=== PATIENT | female | born 1985 | race Caucasian/White ===

== ENCOUNTER 2017-09-29 12:46 | Outpatient (CLI) | payer BC ==
[2017-09-29 17:41] LABS: BASOPHILS % (AUTO) 0.5 %; EOSINOPHILS # (AUTO) 0.1 10^3/uL (0.0-0.7); EOSINOPHILS % (AUTO) 2.6 %; HCT - HEMATOCRIT 41.7 % (37.0-47.0); HGB - HEMOGLOBIN 13.8 g/dL (12.0-16.0); LYMPHOCYTES # (AUTO) 1.6 10^3/uL (1.5-3.5); MEAN CORPUSCULAR HEMOGLOBIN 29.2 pg (27.0-31.0); MEAN CORPUSCULAR HGB CONC 33.1 g/dL (32.0-36.0); MEAN PLATELET VOLUME 8.9 fL (7.9-10.8); MONOCYTES # (AUTO) 0.4 10^3/uL (0.0-1.0); MONOCYTES % (AUTO) 9.6 %; NEUTROPHILS # (AUTO) 2.4 10^3/uL (1.5-6.6); NEUTROPHILS % (AUTO) 52.3 %; RED BLOOD COUNT 4.74 10^6/uL (4.20-5.40); RED CELL DISTRIBUTION WIDTH 13.6 % (12.0-15.0); UNCORRECTED WHITE BLOOD COUNT 4.6 x10^3/uL; WHITE BLOOD COUNT 4.6 x10^3/uL (4.8-10.8)
[2017-09-29 18:00] LABS: THYROID STIMULATING HORMONE 2.16 uIU/mL (0.34-5.60)
[2017-09-29 18:02] LABS: ALBUMIN/GLOBULIN RATIO 1.8 (1.0-2.2); BILIRUBIN,TOTAL 0.7 mg/dL (0.2-1.0); BUN - BLOOD UREA NITROGEN 10 mg/dL (6-20); CARBON DIOXIDE - CO2 28 mmol/L (21-32); CHLORIDE 104 mmol/L (101-111); CREATININE 0.7 mg/dL (0.4-1.0); GFR - MDRD 96 (>89); GLUCOSE 88 mg/dL (70-100); IRON 110 ug/dL (28-170); POTASSIUM 4.1 mmol/L (3.5-5.0); SODIUM 137 mmol/L (135-145); TOTAL IRON BINDING CAPACITY 431 ug/dL (250-450); TOTAL PROTEIN 7.2 g/dL (6.7-8.2); TRANSFERRIN 308 mg/dL (192-382)
== END 2017-09-29 12:47 | disposition home or self-care (01) ==
LOC: LAB.F 12:46
PROVIDERS: ATTEND Nurse Practitioner Family
DX: R53.83 Other fatigue (principal)
CPT/HCPCS: 36415; 80053; 82607; 83540; 84443; 84466; 85025

== ENCOUNTER 2018-11-02 11:28 | Outpatient (CLI) | payer BC ==
[2018-11-02 19:14] LABS: BILIRUBIN,URINE NEGATIVE (NEGATIVE); GLUCOSE, URINE (UA) NEGATIVE (NEGATIVE); KETONES,URINE (UA) NEGATIVE (NEGATIVE); LEUKOCYTE ESTERASE, URINE NEGATIVE (NEGATIVE); NITRITE,URINE NEGATIVE (NEGATIVE); OCCULT BLOOD,URINE MODERATE (NEGATIVE); PROTEIN,URINE NEGATIVE (NEGATIVE); UROBILINOGEN,URINE 0.2 (NORMAL) E.U./dL (NORMAL)
[2018-11-02 19:24] LABS: CLARITY,URINE CLEAR (CLEAR)
[2018-11-02 19:45] LABS: BACTERIA,URINE None Seen /HPF (None Seen); RBC,URINE 0-5 /HPF (0-5); SQUAMOUS EPITHELIAL CELL,UR FEW Squamous (<= Few)
== END 2018-11-02 23:59 | disposition home or self-care (01) ==
LOC: LAB.R 11:28
PROVIDERS: ATTEND Nurse Practitioner Obstetrics & Gynecology
DX: N76.0 Acute vaginitis (principal); R30.0 Dysuria
CPT/HCPCS: 81001; 87086; 87480; 87510; 87660

== ENCOUNTER 2020-09-26 08:00 | Outpatient (CLI) | payer BC | END 2020-09-26 23:59 | disposition home or self-care (01) | LOC: LAB.R 08:00 | PROVIDERS: ATTEND Physician Assistant | DX: J01.00 Acute maxillary sinusitis, unspecified (principal) | CPT/HCPCS: 87640 ==

== ENCOUNTER 2021-03-05 11:21 | Outpatient (CLI) | payer BC ==
[2021-03-05 11:52] LABS: BASOPHILS % (AUTO) 0.7 %; EOSINOPHILS # (AUTO) 0.2 10^3/uL (0.0-0.7); EOSINOPHILS % (AUTO) 2.9 %; HCT - HEMATOCRIT 40.1 % (37.0-47.0); HGB - HEMOGLOBIN 13.1 g/dL (12.0-16.0); LYMPHOCYTES # (AUTO) 2.1 10^3/uL (1.5-3.5); LYMPHOCYTES % (AUTO) 34.8 %; MEAN CORPUSCULAR HEMOGLOBIN 29.8 pg (27.0-31.0); MEAN CORPUSCULAR HGB CONC 32.7 g/dL (32.0-36.0); MEAN CORPUSCULAR VOLUME 91.3 fL (81.0-99.0); MEAN PLATELET VOLUME 10.4 fL (7.9-10.8); MONOCYTES # (AUTO) 0.5 10^3/uL (0.0-1.0); MONOCYTES % (AUTO) 8.1 %; NEUTROPHILS # (AUTO) 3.2 10^3/uL (1.5-6.6); NEUTROPHILS % (AUTO) 53.2 %; PLT - PLATELET COUNT 238 10^3/uL (130-450); RED BLOOD COUNT 4.39 10^6/uL (4.20-5.40); RED CELL DISTRIBUTION WIDTH 12.8 % (12.0-15.0); WHITE BLOOD COUNT 5.9 x10^3/uL (4.8-10.8)
[2021-03-05 12:13] LABS: ALBUMIN 4.2 g/dL (3.2-5.5); ALBUMIN/GLOBULIN RATIO 1.5 (1.0-2.2); ALKALINE PHOSPHATASE 59 IU/L (42-121); ALT ALANINE AMINOTRANSFERASE 20 IU/L (10-60); AST ASPARTATE AMINOTRANSFERASE 22 IU/L (10-42); BILIRUBIN,TOTAL 0.6 mg/dL (0.2-1.0); BUN - BLOOD UREA NITROGEN 13 mg/dL (6-20); CALCIUM 9.1 mg/dL (8.5-10.3); CARBON DIOXIDE - CO2 26 mmol/L (21-32); CHLORIDE 103 mmol/L (101-111); CHOL/HDL RATIO 2.3 (<4.4); CHOLESTEROL 185 mg/dL; CREATININE 0.7 mg/dL (0.4-1.0); GFR - MDRD 95 (>89); GLUCOSE 97 mg/dL (70-100); HDL CHOLESTEROL 79 mg/dL; LDL CHOLESTEROL,CALCULATED 91 mg/dL; LDL/HDL RATIO 1.2 (<4.4); POTASSIUM 4.2 mmol/L (3.5-5.0); SODIUM 137 mmol/L (135-145); TRIGLYCERIDES 77 mg/dL; VLDL CHOLESTEROL 15 mg/dL
[2021-03-05 12:23] LABS: THYROID STIMULATING HORMONE 3.08 uIU/mL (0.34-5.60)
== END 2021-03-05 11:22 | disposition home or self-care (01) ==
LOC: LAB 11:21
PROVIDERS: ATTEND Physician Assistant
DX: F41.9 Anxiety disorder, unspecified (principal); F32.9 Major depressive disorder, single episode, unspecified; Z83.438 Family history of other disorder of lipoprotein metabolism and other lipidemia; R53.1 Weakness; R53.83 Other fatigue; F32.81 Premenstrual dysphoric disorder; G43.909 Migraine, unspecified, not intractable, without status migrainosus
CPT/HCPCS: 36415; 80053; 80061; 82306; 83721; 84443; 85025; 85651

== ENCOUNTER 2021-07-25 08:00 | Outpatient (CLI) | payer BC | END 2021-07-25 23:59 | disposition home or self-care (01) | LOC: LAB.S 08:00 | PROVIDERS: ATTEND Physician Assistant Medical | DX: R07.0 Pain in throat (principal); Z20.822 Contact with and (suspected) exposure to COVID-19 ==

== ENCOUNTER 2021-08-27 18:50 | Outpatient (CLI) | payer BC ==
--- NOTE | 2021-08-28 09:03 | Ultrasound Report ---
PROCEDURE: Pelvic w/Transvaginal INDICATIONS: PELVIC PAIN TECHNIQUE: Real-time scanning was performed of the pelvic organs, with image documentation. Additional endovagi nal scanning was necessary due to incomplete visualization of the adnexal and endometrial structures by transabdominal scanning. COMPARISON: April 13, 2013. FINDINGS: UTERUS: Anteverted, heterogeneous echotexture, and measures 8.9 x 4.1 x 4.4 cm. An ovoid, slightly hy poechoic lesion is seen in the left lateral uterus, measuring 1.6 x 1.7 x 1.4 cm, compatible with a i ntramural fibroid. The endometrial thickness measures 5.3 mm. RIGHT OVARY: 2.9 x 1.9 x 2.5 cm. Color-flow projects over the ovarian tissue. Redemonstrated hypoecho ic lesion in the right adnexa, measuring 3.4 x 3.2 x 3.8 cm (previously measuring 4.2 x 2.4 x 2.8 cm) , which may contain a solid component but does not demonstrate vascularity. LEFT OVARY: 1.6 x 2.6 x 2.9 cm. Color-flow projects over the ovarian tissue. OTHER: None. IMPRESSION: 1.Slightly decreased size of the previously demonstrated right adnexal cyst, which may contain a mura l nodule. Consider magnetic resonance imaging and gynecological consultation. Reviewed by: Conrad Echols MD on 08/28/2021 9:01 AM PDT Approved by: Conrad Echols MD on 08/28/2021 9:01 AM PDT Station ID: [id number]
== END 2021-08-27 18:51 | disposition home or self-care (01) ==
LOC: DI 18:50
PROVIDERS: ATTEND Obstetrics & Gynecology
DX: R10.2 Pelvic and perineal pain (principal); N83.201 Unspecified ovarian cyst, right side

== ENCOUNTER 2021-12-20 14:30 | Outpatient (CLI) | payer MEDICAID ==
[2021-12-20 15:14] LABS: BASOPHILS % (AUTO) 0.6 %; EOSINOPHILS # (AUTO) 0.1 10^3/uL (0.0-0.7); EOSINOPHILS % (AUTO) 2.2 %; HCT - HEMATOCRIT 40.2 % (37.0-47.0); HGB - HEMOGLOBIN 12.8 g/dL (12.0-16.0); LYMPHOCYTES # (AUTO) 1.7 10^3/uL (1.5-3.5); LYMPHOCYTES % (AUTO) 34.1 %; MEAN CORPUSCULAR HEMOGLOBIN 28.9 pg (27.0-31.0); MEAN CORPUSCULAR HGB CONC 31.8 g/dL (32.0-36.0); MEAN CORPUSCULAR VOLUME 90.7 fL (81.0-99.0); MEAN PLATELET VOLUME 10.8 fL (7.9-10.8); MONOCYTES # (AUTO) 0.4 10^3/uL (0.0-1.0); MONOCYTES % (AUTO) 8.9 %; NEUTROPHILS # (AUTO) 2.7 10^3/uL (1.5-6.6); PLT - PLATELET COUNT 261 10^3/uL (130-450); RED BLOOD COUNT 4.43 10^6/uL (4.20-5.40); RED CELL DISTRIBUTION WIDTH 13.1 % (12.0-15.0); WHITE BLOOD COUNT 4.9 x10^3/uL (4.8-10.8)
[2021-12-20 15:27] LABS: % IRON SATURATION 14 % (20-50); IRON 60 ug/dL (28-170); TOTAL IRON BINDING CAPACITY 421 ug/dL (250-450); TRANSFERRIN 301 mg/dL (192-382)
[2021-12-20 15:35] LABS: THYROID STIMULATING HORMONE 2.1 uIU/mL (0.34-5.60)
[2021-12-20 15:40] LABS: FERRITIN 4.5 ng/mL (11.0-306.8)
== END 2021-12-20 14:31 | disposition home or self-care (01) ==
LOC: LAB 14:30
PROVIDERS: ATTEND Obstetrics & Gynecology
DX: Z01.812 Encounter for preprocedural laboratory examination (principal); N93.8 Other specified abnormal uterine and vaginal bleeding
CPT/HCPCS: 36415; 82728; 83540; 84403; 84443; 84466; 85025

== ENCOUNTER 2021-12-24 09:39 | Day surgery (SDC) | payer MEDICAID ==
[2021-12-24] MEDS ORDERED: GABAPENTIN 400 MG CAPSULE ONE (09:52)
[2021-12-24] MEDS ORDERED: ACETAMINOPHEN 500 MG TABLET PO ONE (09:53)
[2021-12-24] MEDS ORDERED: CELECOXIB 100 MG CAPSULE PO ONE (09:53)
[2021-12-24 09:58] LABS: HCG UR QUAL NEGATIVE
[2021-12-24] MEDS ORDERED: LACTATED RINGERS 1,000 ML IV ONE ×2 (10:12→14:58)
--- NOTE | 2021-12-24 10:22 | ANESTHESIA ---
Pre-Anesthesia VS, & Labs - Diagnosis DUB - Procedure diagnostic laparoscopy, hysteroscopy, IUD placement Vital Signs: Temp Pulse Resp BP Pulse Ox 36.1 C L 88 16 135/88 H 100 12/24/21 09:53 12/24/21 09:53 12/24/21 09:53 12/24/21 09:53 12/24/21 09:53 Height: 5 ft 3.5 in Weight (kg): 66.6 kg Body Mass Index: 25.6 BMI Classification: Overweight - NPO >8 hours - Is Patient ?: No Home Medications and Allergies Home Medications: Ambulatory Orders Acetaminophen [Tylenol] 650 mg PO Q6H PRN 12/16/21 Cholecalciferol [Vitamin D3] 50 mcg PO DAILY 12/16/21 Acetaminophen [Tylenol] 650 mg PO Q6H PRN 12/16/21 Cholecalciferol [Vitamin D3] 50 mcg PO DAILY 12/16/21 Allergies/Adverse Reactions: Allergies Allergy/AdvReac Type Severity Reaction Status Date / Time azithromycin [From Zithromax] Allergy Hives Verified 12/16/21 12:43 cephalexin [From Keflex] Allergy eye Verified 12/16/21 12:43 swelling Anes History & Medical History - Anesthetic History Anesthesia Complications: reports: No previous complications - Medical History Cardiovascular: reports: Hypertension Pulmonary: reports: None Gastrointestinal: reports: GERD Urinary: reports: None Musculoskeletal: reports: None Endocrine/Autoimmune: reports: None Skin: reports: Rosacea Smoking Status: Never smoker History of Cancer?: No - Surgical History Other Past Surgical History: oral surgery Exam General: Alert Dental: WNL, Other (2 missing) Mouth Opening: Greater than 4 Fingerbreadths Neck Mobility: Normal Mallampati classification: I Respiratory: Lungs clear Cardiovascular: Regular rate Plan Anesthesia Type: General Consent for Procedure(s) Verified and Reviewed: Yes Code Status: Attempt Resuscitation ASA classification: 2-Mild systemic disease Is this case an emergency?: No
[2021-12-24] MEDS ORDERED: ePHEDrine 50 MG/ML VIAL IVP PRN (10:30)
[2021-12-24] MEDS ORDERED: MORPHINE 2 MG/ML CARPUJECT IVP PRN (10:30)
[2021-12-24] MEDS ORDERED: HYDROmorphone 0.5 MG/0.5 ML SYRINGE IVP PRN (10:30)
[2021-12-24] MEDS ORDERED: ATROPINE ABBOJECT 1 MG/10 ML SYRINGE IVP PRN (10:30)
[2021-12-24] MEDS ORDERED: fentaNYL 100 MCG/2 ML VIAL IVP PRN (10:30)
[2021-12-24] MEDS ORDERED: ONDANSETRON 4 MG/2 ML VIAL IVP PRN (10:30)
[2021-12-24] MEDS ORDERED: METOCLOPRAMIDE 10 MG/2 ML VIAL IVP PRN (10:30)
[2021-12-24] MEDS ORDERED: NALOXONE 0.4 MG/ML VIAL IVP PRN (10:30)
[2021-12-24] MEDS ORDERED: LACTATED RINGERS 1,000 ML IV SCH (11:00)
[2021-12-24] MEDS ORDERED: LIDOCAINE 2%-EPI 1:100000 20 ML MDV ONE (11:16)
[2021-12-24] MEDS ORDERED: BUPIVACAINE 0.25% PF 30 ML VIAL ONE (11:16)
[2021-12-24] MEDS ORDERED: PROPOFOL 200 MG/20 ML VIAL IVP ONE (11:59)
[2021-12-24] MEDS ORDERED: LIDOCAINE-MPF 2% 5 ML VIAL ONE (11:59)
[2021-12-24] MEDS ORDERED: fentaNYL 100 MCG/2 ML VIAL ONE (12:00)
[2021-12-24] MEDS ORDERED: MIDAZOLAM 2 MG/2 ML VIAL ONE (12:00)
[2021-12-24] MEDS ORDERED: ROCURONIUM 50 MG/5 ML VIAL ONE (12:00)
[2021-12-24] MEDS ORDERED: LEVONORGESTREL 20 MCG/24H IUD IY ONE ×2 (13:00→13:40)
[2021-12-24] MEDS ORDERED: ONDANSETRON 4 MG/2 ML VIAL ONE (13:33)
[2021-12-24] MEDS ORDERED: DEXAMETHASONE 4 MG/ML VIAL ONE (13:33)
[2021-12-24] MEDS ORDERED: LIDOCAINE 2%-EPI 1:100000 20 ML MDV SUBQ ONE ×2 (13:38)
[2021-12-24] MEDS ORDERED: BUPIVACAINE 0.25% PF 30 ML VIAL SUBQ ONE ×2 (13:38)
[2021-12-24] MEDS ORDERED: GLYCOPYRROLATE 1 MG/5 ML VIAL ONE (13:43)
[2021-12-24] MEDS ORDERED: SUGAMMADEX 200 MG/2 ML VIAL IVP ONE (14:59)
[2021-12-24] MEDS ORDERED: oxyCODONE 5 MG TABLET PO PRN (15:21)
--- NOTE | 2021-12-24 15:24 | ANESTHESIA POST OP EVALUATION ---
Anesthesia Post Eval - Post Anesthesia Eval Vitals: Last Vital Signs Temp 36 C L 12/24/21 15:15 Pulse 93 12/24/21 15:15 Resp 19 12/24/21 15:15 BP 119/89 H 12/24/21 15:15 Pulse Ox 100 12/24/21 15:15 CV Function Including HR & BP: Stable Pain Control: Satisfactory Nausea & Vomiting: Negative Mental Status: Baseline Respiratory Status: Airway Patent Hydration Status: Satisfactory Anesthesia Complications: None
--- NOTE | 2021-12-24 15:28 | OPERATIVE REPORT ---
Operative Report - General Procedure Date: 12/24/21 Planned Procedure: Diagnostic laparoscopy with possible ablation of endometiosis Hysteroscopy D&C Mirena IUD placement Pre-Op Diagnosis: chronic pelvic pain, dysfunctional uterine bleeding, dysmenorrhea Procedure Performed: Diagnostic laparoscopy, lysis of adhesions, cystectomy Hysteroscopy D&C and Mirena IUD placement. Mirena Lot #[id number] Post Op Diagnosis: Same and bilateral paratubal cyst and pelvic adhesions - Procedure Note Primary Surgeon: Sofia Anderson MD Secondary Surgeon: Erasmo Galloway MD Anesthesia Provider: Janet Salgado CRNA Anesthesia Technique: General ET tube Pathology: Cyst wall and fluid Uterine contents IV Fluids (mL): 1,200 Estimated Blood Loss (mL): 20 Urine Output (mL): 500 Indications: Patient is a 35 yo G0 here forfor hysteroscopy D&C, Dx laparoscopy, and IUD placement Radha was first seen by me in clinic on 03/11/21 and was seen again on 10/09/21. She reported heavy cycles and heavy cramps since her menses started at age 10. Her moods are terrible right before menses. She gets flu like symptoms the day before with swollen glands and achiness. Resolves with onset of menses. Fluoxetine daily did not help her symptoms. She is a G0. Has menses every month. No SA; last episode was 4 years ago. No STIs and No abnl pap smears. She is interested in storing her eggs for later use given advancing reproductive age. is desired. She underwent a trial with the Nuvaring. The first month was fine. The second month she had breakthrough bleeding. She thenhad *terrible* cramps and started passing large clots with menses. She then passed what she perceived to be a decidual cast. It was as large as her hand and appeared to be the outline of a uterine cavity. Pain went away after that. She stopped the Nuvaring. Menses are increasingly heavy. She soaks her bedding and sleeps on a towel. Heavy for about 4 days. Also has pain in the lower right side. Also has severe pain with defecation when cycling. Cannot wear tight clothing when on her cycle. Has tried Trudi/COCs in the past. Has migraines with aura that were exacerbated with the pills. Her tongue would get numb with the migraines. Had some issues with acne as well. Pelvic us on 08/27/21 showed the following: UTERUS: Anteverted, heterogeneous echotexture, and measures 8.9 x 4.1 x 4.4 cm. An ovoid, slightly hypoechoic lesion is seen in the left lateral uterus, measuring 1.6 x 1.7 x 1.4 cm, compatible with a intramural fibroid. The endometrial thickness measures 5.3 mm. RIGHT OVARY: 2.9 x 1.9 x 2.5 cm. Color-flow projects over the ovarian tissue. Redemonstrated hypoechoic lesion in the right adnexa, measuring 3.4 x 3.2 x 3.8 cm (previously measuring 4.2 x 2.4 x 2.8 cm), which may contain a solid component but does not demonstrate vascularity. LEFT OVARY: 1.6 x 2.6 x 2.9 cm. Color-flow projects over the ovarian tissue. OTHER: None. IMPRESSION: 1.Slightly decreased size of the previously demonstrated right adnexal cyst, which may contain a mural nodule. Consider magnetic resonance imaging and gynecological consultation. She would like to move forward with a dx laparoscopy with possible ablation of endometriosis and removal of any concerning tissue but does not want to compromise ovarian reserve. Desires hysterosocopy D&C given DUB and placement of IUD under anesthesia. . Findings: Normal appearing ovaries. Right fallopian tube had a 5 cm paratubal cyst filled with clear fluid. The left fallopian tube had a 2 cm paratubal cyst, pedunculated. Bilateral pelvic adhesions fixing the adnexa to the pelvic sidewall, limiting mobility of the uterus, fallopian tubes, and bowel. Uterus, adnexa and bowel were freely mobile and lysis of adhesions. Normal appearing liver edge, gall bladder, and appendix. Complications: none - Other Other Information/Narrative: Risks benefits and alternatives of the procedure were reviewed. Consent was again confirmed. Patient was brought to the operating room and underwent general anesthesia. She was placed in dorsal lithotomy position with legs resting in yellowfin stirrups. SCDs were in place and activated. Patient was then prepped and draped in the usual sterile fashion. Surgical timeout was performed. Bimanual exam was performed. Sterile speculum was placed. The cervix was visualized. A paracervical block using 10 cc of 1% lidocaine mixed with 0.5% Marcaine with epinephrine injected at 4:00 and 8:00 was placed. The Humi uterine manipulator was placed. The base of the umbilicus was anesthetized with intradermal injection of 1% lidocaine mixed with 0.5% Marcaine with epinephrine. A 5 mm skin incision was made with a scalpel. A 5 mm blunt trocar was inserted under direct visualization using Visiport. Once the port was confirmed to be placed intraperitoneally, the abdomen was insufflated to 15 mmHg with CO2 gas Exploration of the abdomen and pelvis confirmed that no injury was sustained with placement of the trocar. Two additional 5 mm ports were placed in the right and left lower quadrants, taking care to avoid the epigastric arteries, while under direct visualization via laparoscopic guidance. The abdomen was explored with the laparoscope, with findings as noted. The right fallopian tube containing 5 cm cyst was grasped and elevated at the fimbriated end. The Liagasure was used to incise the overlying tissue and the cyst was gently dissected from the fallopian tube using blunt dissection. The cyst was removed intact. It was placed in the cul de sac and a laparoscopic needle was used to piece the cyst and drained it of fluid by drawing the cyst fluid into a syringe. The cyst was then removed thorough a lateral port. Good hemostasis was noted. The smaller left paratubal cyst was pedunculated and transected at its stalk. It was then removed form the field via the right lateral port. Right sided filmy adhesions fixing the appendix to the pelvic side all and limiting mobility of the fallopian tube an uterus were transection with the Ligasure, taking care to avoid bowel, ureter, large vessels. The adhesions were released in a combination of blunt and sharp dissection. Left sided adhesions were also fixing the left adnexal and colon to the left pelvic sidewall. They were released in a similar fashion, using a combination of sharp and blunt dissection. At the close of the dissection, the uterus was freely mobile and the bowel could be cleared form the cul de sac, restoring anatomy and mobility of the pelvic organs. Good hemostasis was noted. The abdomen was partially desufflated. Pedicles were observed under decreased pressure and good hemostasis was again confirmed. Abdomen was then completely desufflated. All instruments were removed from the abdomen. Skin was closed with interrupted subcuticular stitches using 4-0 Monocryl. Dermabond was applied over the suture sites. The Humi manipulator was removed from the uterus. Again, good hemostasis was noted. Attention was then turned to the hysteroscopic portion of the procedure. Speculum was placed in the vagina and the cervix was visualized. Single-tooth tenaculum was placed at the anterior cervical lip. The cervical os was serially dilated with Hegar dilators to accommodate the caliber of the diagnostic hysteroscope. Uterus sounded to 8.5 cm. The hysteroscope was inserted and findings were noted as above. Hysteroscope was removed. Sharp curettage D&C was performed with sharp curettage. Hysteroscope was reinserted. The uterine cavity had been cleared of polypoid tissue. Hysteroscope was removed. Mirena IUD was inserted according to package directions. Strings were trimmed to 3 cm. All instruments were removed from the uterus. Tenaculum was removed. Tenaculum sites were noted to be hemostatic. All instruments were removed from the vagina. Procedure was well- tolerated without complication. The final sponge needle and instrument counts were correct at completion of the procedure patient was awakened taken to the postanesthesia care unit in stable condition. Dr. Galloway assisted with retraction, counter traction, suturing. Procedure could not have been completed without his assistance.
[2021-12-24 16:31] VITALS: BP 132/85
== END 2021-12-24 09:40 | disposition home or self-care (01) ==
LOC: SDS 09:39
PROVIDERS: ATTEND Obstetrics & Gynecology
PROC: 0UDB7ZZ Extraction of Endometrium, Via Natural or Artificial Opening (ICD-10-PCS; 2021-12-24)
PROC: 0UJD8ZZ Inspection of Uterus and Cervix, Via Natural or Artificial Opening Endoscopic (ICD-10-PCS; 2021-12-24)
PROC: 0UH97HZ Insertion of Contraceptive Device into Uterus, Via Natural or Artificial Opening (ICD-10-PCS; 2021-12-24)
PROC: 0UB74ZZ Excision of Bilateral Fallopian Tubes, Percutaneous Endoscopic Approach (ICD-10-PCS; principal; 2021-12-24 10:45)
PROC: 0UB97ZZ Excision of Uterus, Via Natural or Artificial Opening (ICD-10-PCS; 2021-12-24 10:45)
DX: N93.8 Other specified abnormal uterine and vaginal bleeding (principal); N94.6 Dysmenorrhea, unspecified; N84.0 Polyp of corpus uteri; N83.8 Other noninflammatory disorders of ovary, fallopian tube and broad ligament; R10.2 Pelvic and perineal pain; Z30.430 Encounter for insertion of intrauterine contraceptive device
CPT/HCPCS: 58300; 58558; 58662; 81025; A9270; J7120; J7298

== ENCOUNTER 2021-12-24 20:03 | Emergency (ER) | payer MEDICAID ==
[2021-12-24 20:21] VITALS: BP 165/89
--- NOTE | 2021-12-24 21:16 | ED Physician Documentation ---
History of Present Illness - Stated complaint Stated Complaint: POST SURG/UNABLE TO URINATE - Chief complaint Chief Complaint: Abd Pain - History obtained from History obtained from: Patient - History of Present Illness Timing: Today Pain level max: 6 Pain level now: 5 - Additonal information Additional information: 36-year-old female had an exploratory laparoscopy and hysteroscopy today. She states that she has not been able to urinate since she got home. Nothing makes it better or worse. No fevers. No chills. Review of Systems Constitutional: denies: Fever, Chills GI: denies: Vomiting, Diarrhea Skin: denies: Rash PD PAST MEDICAL HISTORY - Past Medical History Cardiovascular: Hypertension Respiratory: None Endocrine/Autoimmune: None GI: GERD : None HEENT: Chronic vision loss, Chronic sinusitis Psych: Depression, Anxiety, Panic attacks Musculoskeletal: None Derm: Rosacea - Present Medications Home Medications: Ambulatory Orders Medication Instructions Recorded Confirmed Acetaminophen [Tylenol] 650 mg PO Q6H PRN 12/16/21 12/16/21 Cholecalciferol [Vitamin D3] 50 mcg PO DAILY 12/16/21 12/16/21 Acetaminophen [Acetaminophen Extra 1,000 mg PO Q8H PRN #60 tablet 12/24/21 Strength] Ascorbic Acid [Vitamin C] 250 mg PO DAILY 2 Days #60 tablet 12/24/21 Docusate Sodium 100Mg Capsule 100 - 200 mg PO BID PRN #60 cap 12/24/21 [Colace 100Mg Capsule] Ferrous Gluconate 324 mg PO DAILY #60 tablet 12/24/21 Ibuprofen [Motrin] 600 mg PO Q6H PRN #60 tab 12/24/21 oxyCODONE [Roxicodone] 2.5 - 5 mg PO Q4H PRN #24 tablet 12/24/21 oxyCODONE [Roxicodone] 2.5 - 5 mg PO Q4H PRN #24 tablet 12/24/21 - Allergies Allergies/Adverse Reactions: Allergies Allergy/AdvReac Type Severity Reaction Status Date / Time azithromycin [From Zithromax] Allergy Hives Verified 12/24/21 20:21 cephalexin [From Keflex] Allergy eye Verified 12/24/21 20:21 swelling - Social History Smoking Status: Never smoker PD ED PE NORMAL - Vitals Vital signs reviewed: Yes - General General: Alert and oriented X 3, No acute distress - HEENT HEENT: Moist mucous membranes - Neck Neck: Supple, no meningeal sign - Cardiac Cardiac: RRR - Respiratory Respiratory: No respiratory distress, Clear bilaterally - Abdomen Abdomen: Normal bowel sounds, Soft, Non distended, Other (Tender palpation suprapubic. No peritoneal signs) - Derm Derm: Warm and dry - Neuro Neuro: Alert and oriented X 3 - Psych Psych: Normal mood, Normal affect Results - Vitals Vitals: Vital Signs - 24 hr 12/24/21 12/24/21 20:18 21:26 Temperature 36.8 C Heart Rate 95 Respiratory 16 15 Rate Blood Pressure 165/89 H O2 Saturation 99 Oxygen O2 Source Room air PD MEDICAL DECISION MAKING - ED course Complexity details: reviewed results, re-evaluated patient, considered differential, d/w patient, d/w it consultant ED course: [place] catheter was placed, approximately 750 mL drained immediately, approximately 1 L drained in total. Symptoms resolved. Patient feels much better. Discussed the case with Dr. Anderson, gynecology, she will follow up in the office tomorrow for catheter removal. Patient counseled regarding signs and symptoms for which I believe and urgent re-evaluation would be necessary. Patient with good understanding of and agreement to plan and is comfortable going home at this time This document was made in part using voice recognition software. While efforts are made to proofread this document, sound alike and grammatical errors may occur. Departure - Departure Disposition: 01 Home, Self Care Clinical Impression: Acute urinary retention Condition: Good Instructions: ED Catheter Care [place] Follow-Up: Tara Anderson MD [Provider Admit Priv/Credential] - Tomorrow Comments: We will leave the catheter in tonight. I spoke with Dr. Anderson, she will see you in clinic tomorrow for catheter removal. Please call the office to find out what time you should come in. Return if you worsen Discharge Date/Time: 12/24/21 21:30
== END 2021-12-24 21:30 | disposition home or self-care (01) ==
LOC: ED 20:03
DX: N99.89 Other postprocedural complications and disorders of genitourinary system (principal)
CPT/HCPCS: 51702; 51798; 99282; 99283